=== PATIENT | male | born 1955 | race Caucasian/White ===

== ENCOUNTER 2020-05-15 19:51 | Inpatient (IN) | payer MEDICARE, BC ==
[~2020-05-15] VITALS: Ht 182.9 cm; Wt 100.7 kg
[~2020-05-15 19:51] MED LIST: ASACOL HD800 MG PO; CETIRIZINE HCL10 MG PO; IBUPROFEN800 MG PO; LISINOPRIL-HCT1 EAC1 PO; MOBIC7.5 MG PO; NORVASC 5 MG TAB5 MG PO; SIMVASTATIN40 MG PO; ZOCOR80 MG PO
[2020-05-15] MEDS ORDERED: ASACOL HD800 MG PO ×2 (20:40→20:41)
[2020-05-15] MEDS ORDERED: SILDENAFIL20 MG PO (20:41)
[2020-05-15 21:21] LABS: HEMOGLOBIN 16.1 gm/dl (14.0-17.5); RED BLOOD COUNT 5.7 M/UL (4.20-5.50); WHITE BLOOD COUNT 14.4 K/UL (4.5-11.0)
[2020-05-15 21:33] LABS: BUN/CREATININE RATIO 22 (0-10)
[2020-05-16 03:43] LABS: HEMOGLOBIN 14.8 gm/dl (14.0-17.5); RED BLOOD COUNT 5.39 M/UL (4.20-5.50); WHITE BLOOD COUNT 10.8 K/UL (4.5-11.0)
[2020-05-16 03:59] LABS: BUN/CREATININE RATIO 20 (0-10)
[2020-05-17 07:32] LABS: HEMOGLOBIN 14.4 gm/dl (14.0-17.5); RED BLOOD COUNT 5.2 M/UL (4.20-5.50); WHITE BLOOD COUNT 11.5 K/UL (4.5-11.0)
[2020-05-17 08:02] LABS: BUN/CREATININE RATIO 15 (0-10)
[2020-05-17] MEDS ORDERED: ASPIRIN EC325 MG PO (09:12)
[2020-05-18 02:13] LABS: HEMOGLOBIN 12.7 gm/dl (14.0-17.5)
[2020-05-18 02:22] LABS: RED BLOOD COUNT 4.59 M/UL (4.20-5.50)
[2020-05-18 02:53] LABS: BUN/CREATININE RATIO 16 (0-10)
[2020-09-22] MEDS ORDERED: AMLODIPINE BESYL5 MG PO (08:32)
[2020-09-22] MEDS ORDERED: SIMVASTATIN80 MG PO (08:33)
[2020-09-22] MEDS ORDERED: LISINOPRIL-HCT1 EAC1 PO (08:33)
[2020-09-22] MEDS ORDERED: ASACOL HD800 MG PO (08:33)
== END 2020-05-18 11:42 | disposition home or self-care (01) | DRG 481 ==
LOC: ER1 19:51 → PROG CARE 20:39 → CDU 20:39 → PROG CARE 05-16 03:25 → MED SURG 4 05-16 20:38
PROVIDERS: Orthopaedic Surgery; Physician Assistant; ADMIT Internal Medicine
PROC: 0QS604Z Reposition Right Upper Femur with Internal Fixation Device, Open Approach (ICD-10-PCS; principal; 2020-05-16 09:00)
DX: S72.001A Fracture of unspecified part of neck of right femur, initial encounter for closed fracture (principal); D62 Acute posthemorrhagic anemia; S72.141A Displaced intertrochanteric fracture of right femur, initial encounter for closed fracture; W00.0XXA Fall on same level due to ice and snow, initial encounter; Z88.0 Allergy status to penicillin; I10 Essential (primary) hypertension; E78.5 Hyperlipidemia, unspecified; Z20.828 Contact with and (suspected) exposure to other viral communicable diseases; D64.9 Anemia, unspecified
CPT/HCPCS: 36415; 71045; 73502; 73700; 76000; 80048; 80053; 85025; 85027; 85610; 85730; 90471; 93005; 96374; 96375; 97116-GP-CQ; 97162; 97530-GP-CQ; 99285; C1713; J1100; J1885; J2001; J2250; J2270; J2405; J2704; J2710; J3010; J7030; J7120; U0002

== ENCOUNTER → 2020-09-22 | Day surgery (SDC) | payer MEDICARE, BC ==
[~2020-09-22] MED LIST changes: +AMLODIPINE BESYL5 MG PO; +ASPIRIN EC325 MG PO; +SILDENAFIL20 MG PO; +SIMVASTATIN80 MG PO
== END | disposition home or self-care (01) ==
LOC: OR 07:52
DX: C15.5 Malignant neoplasm of lower third of esophagus (principal); C16.0 Malignant neoplasm of cardia; T18.198A Other foreign object in esophagus causing other injury, initial encounter; K51.00 Ulcerative (chronic) pancolitis without complications; I10 Essential (primary) hypertension; E78.00 Pure hypercholesterolemia, unspecified; F17.290 Nicotine dependence, other tobacco product, uncomplicated; K21.9 Gastro-esophageal reflux disease without esophagitis; E66.3 Overweight; Z68.29 Body mass index [BMI] 29.0-29.9, adult; Z86.010 Personal history of colon polyps; Z88.0 Allergy status to penicillin; Z79.899 Other long term (current) drug therapy; X58.XXXA Exposure to other specified factors, initial encounter
CPT/HCPCS: J2001; J2704; J7040

== ENCOUNTER → 2020-10-08 | Outpatient (CLI) | payer MEDICARE, BC | LOC: CT 10:37 | DX: C15.5 Malignant neoplasm of lower third of esophagus (principal) | CPT/HCPCS: 36415; 71260; 82565; Q9967 ==

== ENCOUNTER → 2020-12-01 | Day surgery (SDC) | payer MEDICARE, BC ==
[~2020-12-01] VITALS: Ht 190.5 cm; Wt 90.7 kg
== END | disposition home or self-care (01) ==
LOC: OR 06:41
DX: C16.0 Malignant neoplasm of cardia (principal); I10 Essential (primary) hypertension; E78.5 Hyperlipidemia, unspecified; M17.12 Unilateral primary osteoarthritis, left knee; Z79.899 Other long term (current) drug therapy; Z88.0 Allergy status to penicillin; Z87.891 Personal history of nicotine dependence
CPT/HCPCS: 71045; 77001; C1769; C1788; J1100; J1642; J2001; J2250; J2370; J2405; J2704; J3010; J3370; J7030; J7040; J7070; J7120